=== PATIENT | female | born 1975 | race Two or more races ===

== ENCOUNTER 2016-06-04 20:06 | Emergency (ER) | payer MEDICAID ==
[~2016-06-04] VITALS: Ht 160 cm; Wt 90.7 kg
[2016-06-04 21:27] LABS: Basophils # (auto) 0 uL; Basophils % (auto) 0.4 % (0.0-2.0); Eosinophils # (auto) 0.1 uL; Eosinophils % (auto) 1.3 % (0.0-7.0); Hematocrit 42.3 % (36.0-46.0); Hemoglobin 14.5 g/dL (12.2-16.2); Lymphocytes # (auto) 1.6 uL; Lymphocytes % (auto) 19.1 % (10.0-50.0); Mean Corpuscular Hemoglobin 32.1 pg (28.0-32.0); Mean Corpuscular Hgb Conc. 34.2 g/dL (32.0-36.0); Mean Corpuscular Volume 93.9 fL (80.0-100.0); Mean Platelet Volume 6.9 fL (7.4-10.4); Monocytes # (auto) 0.9 uL; Monocytes % (auto) 10.5 % (0.0-12.0); Neutrophils # (auto) 5.7 uL; Neutrophils % (auto) 68.7 % (37.0-80.0); Platelet Count (auto) 381 10^3/uL (140-450); Red Cell Distribution Width 12.5 % (11.6-16.0); White Blood Cell 8.2 10^3/uL (4.4-10.8)
[2016-06-04 21:35] VITALS: BP 132/88
[2016-06-04 21:41] LABS: Albumin 3.4 g/dL (3.4-5.0); BUN/Creatinine Ratio 9.1; Calcium 8.4 mg/dL (8.5-10.1); Potassium 3.8 mmol/L (3.5-5.1)
[2016-06-04] MEDS ORDERED: SODIUM CHLORIDE 0.9% 1,000 ML IVB ONE (21:56)
[2016-06-04 22:00] LABS: Bilirubin, Total 0.5 mg/dL (0.2-1.0); Magnesium 2.5 mg/dL (1.6-2.6); Total Protein 7.9 g/dL (6.4-8.2)
[2016-06-04] MEDS ORDERED: HYDROmorphone HCL 2 MG/ML VL IV ONE (22:00)
[2016-06-04] MEDS ORDERED: ONDANSETRON HCL 4 MG/2 ML VIAL IV ONE (22:00)
[2016-06-04 22:05] LABS: Urine Blood Negative /uL (Negative); Urine Glucose Normal (Normal); Urine Mucus FEW (None Seen); Urine RBC 4 /hpf (0 - 4); Urine Squamous Epithelial Cell MOD /hpf (<5)
[2016-06-04 22:21] LABS: Urine Bilirubin 2+ (Negative); Urine Color Orange (Yellow); Urine Ketone 1+ (Negative); Urine Nitrite POSITIVE (Negative)
[2016-06-04 22:28] LABS: INR 1.04 (0.9-1.15); Partial Thromboplastin Time 28.3 sec (22.64-33.71); Prothrombin Time 10.7 sec (9.37-12.3)
[2016-06-05] MEDS ORDERED: CEFTRIAXONE SODIUM 2 GM in D5W 5% 50 ML IV ONE (00:30)
[2016-06-05] MEDS ORDERED: cefTRIAXone 1GM/50ML D5W 50 ML IV ONE (01:14)
== END 2016-06-05 01:44 | disposition home or self-care (01) ==
LOC: ER 20:06
DX: N39.0 Urinary tract infection, site not specified (principal); J45.909 Unspecified asthma, uncomplicated; I10 Essential (primary) hypertension; E07.9 Disorder of thyroid, unspecified; Z88.8 Allergy status to other drugs, medicaments and biological substances; Z90.710 Acquired absence of both cervix and uterus; Z90.49 Acquired absence of other specified parts of digestive tract
CPT/HCPCS: 36415; 74176; 80053; 81001; 82150; 83690; 83735; 85025; 85610; 85730; 96361; 96365; 96375; 99285; J0696; J1170; J2405; J7030; J7060

== ENCOUNTER 2016-12-17 07:33 | Emergency (ER) | payer MEDICAID ==
[~2016-12-17] VITALS: Ht 160 cm; Wt 83.5 kg
[2016-12-17] MEDS ORDERED: SODIUM CHLORIDE 0.9% 1,000 ML IVB ONE (08:03)
[2016-12-17 08:08] VITALS: BP 138/72
[2016-12-17] MEDS ORDERED: KETOROLAC TROMETH 30 MG/ML 1ML VIAL IV ONE (08:15)
[2016-12-17] MEDS ORDERED: ONDANSETRON HCL 4 MG/2 ML VIAL IV ONE (08:15)
[2016-12-17 08:32] LABS: Basophils # (auto) 0 uL; Basophils % (auto) 0.6 % (0.0-2.0); Eosinophils # (auto) 0.1 uL; Eosinophils % (auto) 1.9 % (0.0-7.0); Hemoglobin 14.3 g/dL (12.2-16.2); Lymphocytes # (auto) 1.3 uL; Lymphocytes % (auto) 20.4 % (10.0-50.0); Mean Corpuscular Hemoglobin 33.7 pg (28.0-32.0); Mean Corpuscular Hgb Conc. 33.9 g/dL (32.0-36.0); Mean Corpuscular Volume 99.3 fL (80.0-100.0); Mean Platelet Volume 6.7 fL (6.9-10.8); Monocytes # (auto) 0.4 uL; Monocytes % (auto) 5.7 % (0.0-12.0); Neutrophils # (auto) 4.7 uL; Neutrophils % (auto) 71.4 % (37.0-80.0); Platelet Count (auto) 343 10^3/uL (140-450); Red Cell Distribution Width 12.9 % (11.8-14.3); White Blood Cell 6.6 10^3/uL (4.4-10.8)
[2016-12-17 08:50] LABS: Potassium 3.7 mmol/L (3.5-5.1)
[2016-12-17 08:51] LABS: Albumin 3.5 g/dL (3.4-5.0); BUN/Creatinine Ratio 14.5; Calcium 8.4 mg/dL (8.5-10.1)
[2016-12-17 08:52] LABS: Urine Bilirubin Negative (Negative); Urine Blood TRACE /uL (Negative); Urine Color Yellow (Yellow); Urine Glucose Normal (Normal); Urine Ketone Negative (Negative); Urine Mucus FEW (None Seen); Urine Nitrite Negative (Negative); Urine RBC 8 /hpf (0 - 4); Urine Squamous Epithelial Cell FEW /hpf (<5); Urine Urobilinogen Normal (Negative); Urine pH 5.5 (5.0-8.0)
[2016-12-17 08:53] LABS: Bilirubin, Total 0.4 mg/dL (0.2-1.0); Total Protein 7.2 g/dL (6.4-8.2)
== END 2016-12-17 09:41 | disposition home or self-care (01) ==
LOC: ER 07:33
DX: M54.9 Dorsalgia, unspecified (principal); M79.1 Myalgia; R30.0 Dysuria; J45.909 Unspecified asthma, uncomplicated; E78.5 Hyperlipidemia, unspecified; I10 Essential (primary) hypertension; E07.9 Disorder of thyroid, unspecified; M79.7 Fibromyalgia; Z88.8 Allergy status to other drugs, medicaments and biological substances; Z98.51 Tubal ligation status; Z87.440 Personal history of urinary (tract) infections; Z90.49 Acquired absence of other specified parts of digestive tract; Z90.710 Acquired absence of both cervix and uterus
CPT/HCPCS: 36415; 74176; 80053; 81001; 83690; 85025; 94761; 96361; 96374; 96375; 99285; J1885; J2405; J7030